=== PATIENT | male | born 1980 | race Caucasian/White ===

== ENCOUNTER 2019-05-15 01:58 | Emergency (ER) | payer OTHER ==
--- NOTE | 2019-05-15 02:11 | ED Physician Documentation ---
History of Present Illness - Stated complaint Stated Complaint: FINGER LAC - Chief complaint Chief Complaint: Ext Problem - History obtained from History obtained from: Patient (the patient is a 38 Y/O right hand dominant male who p/w a cc of injury to this left fifth digit while he was packing a bicycle, he reports a part on the bike lacerated the nail to the left fifth digit, he reports that he is up to date on his tetanus as well as all of his other medications.) Review of Systems Constitutional: reports: Reviewed and negative Eyes: reports: Reviewed and negative Ears: reports: Reviewed and negative Nose: reports: Reviewed and negative Throat: reports: Reviewed and negative Cardiac: reports: Reviewed and negative Respiratory: reports: Reviewed and negative GI: reports: Reviewed and negative : reports: Reviewed and negative Skin: reports: Laceration (s) Musculoskeletal: reports: Extremity pain Neurologic: reports: Reviewed and negative Psychiatric: reports: Reviewed and negative Endocrine: reports: Reviewed and negative Immunocompromised: reports: Reviewed and negative PD PAST MEDICAL HISTORY - Past Medical History Past Medical History: No Cardiovascular: None Respiratory: None Neuro: None Endocrine/Autoimmune: None GI: None : None HEENT: None Psych: None Musculoskeletal: None Derm: None - Past Surgical History Past Surgical History: No - Allergies Allergies/Adverse Reactions: Allergies Allergy/AdvReac Type Severity Reaction Status Date / Time No Known Drug Allergies Allergy Verified 05/15/19 02:08 - Social History Does the pt smoke?: No Smoking Status: Never smoker Does the pt drink ETOH?: No Does the pt have substance abuse?: No - Immunizations Immunizations are current?: Yes - POLST Patient has POLST: No PD ED PE NORMAL - Vitals Vital signs reviewed: Yes - General General: Alert and oriented X 3, No acute distress, Well developed/nourished - HEENT HEENT: Atraumatic, PERRL, Moist mucous membranes - Neck Neck: Supple, no meningeal sign, No JVD - Cardiac Cardiac: RRR, Strong equal pulses - Respiratory Respiratory: No respiratory distress, Clear bilaterally - Abdomen Abdomen: Normal bowel sounds, Soft, Non tender, Non distended - Derm Derm: Normal color, Warm and dry, No rash, Other (laceration to the nail of the fifth digit on the left hand that has the nail through the midline, the nail is attached to the nail bed, the laceration is approximately 1 cm. ) - Extremities Extremities: Other (laceration to the nail of the fifth digit on the left hand that has the nail through the midline, the nail is attached to the nail bed, the laceration is approximately 1 cm.) - Neuro Neuro: Alert and oriented X 3 - Psych Psych: Normal mood, Normal affect Results - Vitals Vitals: Vital Signs - 24 hr 05/15/19 05/15/19 05/15/19 02:05 02:17 03:11 Temperature 36.7 C Heart Rate 72 Respiratory 17 17 16 Rate Blood Pressure 159/90 H O2 Saturation 98 05/15/19 03:14 Temperature 36.6 C Heart Rate 77 Respiratory 20 Rate Blood Pressure 151/103 H O2 Saturation 99 Oxygen O2 Source Room air Procedures - General procedure General procedure: wound irrigated, laceration to the fingernail is through the fingernail, no obvious laceration to the nail bed itself, no bone exposed, able to flex and extend at the DIP joint on active and passive ROM. SILT, compartment are soft, no active bleeding, no foreign body identified on exploration, edges of fingernail are well approximated. bacitracin applied and pressure dressing applied. 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 ) Departure - Departure Disposition: 01 Home, Self Care Clinical Impression: Injury to fingernail of left hand Qualifiers: Encounter type: initial encounter Qualified Code(s): S69.92XA - Unspecified injury of left wrist, hand and finger(s), initial encounter Condition: Good Instructions: ED Laceration Hand Follow-Up: YOUR,FLIGHT SURGEON [Other] - 05/15/19 Comments: KEEP FINGER PROTECTED WITH COMPRESSION BANDAGE, FOLLOW UP WITH YOUR FLIGHT SURGEON OR MEDICAL PROVIDER TODAY FOR A RECHECK. Discharge Date/Time: 05/15/19 03:16
[2019-05-15] MEDS ORDERED: BACITRACIN ZINC OINT 1 PACKET TOP STA (02:20)
--- NOTE | 2019-05-15 03:05 | XRAY Report ---
Reason: left hand fifth digit injury Procedure Date: 05/15/2019 Accession Number: [id number] / [id number] Procedure: XR - Hand 3 View LT CPT Code: Final Report FULL RESULT: EXAM: LEFT HAND RADIOGRAPHY EXAM DATE: 05/15/2019 02:38 AM. CLINICAL HISTORY: Left hand fifth digit injury. COMPARISON: None. TECHNIQUE: 3 views. FINDINGS: Bones: Normal. No fractures or bone lesions. Joints: Normal. No subluxations. Soft Tissues: Mild soft tissue swelling in the distal small finger. No radiopaque foreign body seen. IMPRESSION: 1. No fracture or foreign body seen. RADIA
[2019-05-15 03:15] VITALS: BP 151/103
== END 2019-05-15 03:16 | disposition home or self-care (01) ==
LOC: ED 01:58
DX: S61.317A Laceration without foreign body of left little finger with damage to nail, initial encounter (principal); W45.8XXA Other foreign body or object entering through skin, initial encounter; Y93.89 Activity, other specified
CPT/HCPCS: 99283

== ENCOUNTER 2019-05-16 07:11 | Outpatient (CLI) | payer OTHER ==
--- NOTE | 2019-05-16 11:43 | MRI Report ---
Reason: PAIN IN LT KNEE Procedure Date: 05/16/2019 Accession Number: [id number] / [id number] Procedure: MRI - Knee LT W/O CPT Code: Final Report FULL RESULT: EXAM: LEFT KNEE MRI WITHOUT CONTRAST EXAM DATE: 05/16/2019 07:35 AM. CLINICAL HISTORY: Left knee pain. COMPARISON: None. TECHNIQUE: Multiplanar, multisequence T1-weighted and fluid-sensitive sequences of the knee without contrast. Other: None. FINDINGS: Bones: No fractures or subluxations. No marrow edema. No bone lesions. 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 The remaining articular cartilage appears normal. Medial Meniscus: The medial meniscus is intact. Lateral Meniscus: The lateral meniscus is intact. Cruciate Ligaments: The anterior and posterior cruciate ligaments are intact. Collateral Ligaments: The medial collateral and lateral collateral ligamentous structures are intact. Tendons: The quadriceps, patellar, semimembranosus, and popliteus tendons are unremarkable. Musculature: No edema or fatty atrophy. Other: There is a small joint effusion. No popliteal cyst. No loose bodies. The medial and lateral retinacula are intact. The subcutaneous tissues and fat pads are unremarkable. IMPRESSION: 1. Chondromalacia patellae grade 1. 2. There is a small joint effusion. RADIA
== END 2019-05-16 07:12 | disposition home or self-care (01) ==
LOC: DI 07:11
PROVIDERS: ATTEND General Practice
DX: M94.262 Chondromalacia, left knee (principal); M25.462 Effusion, left knee